=== PATIENT | male | born 1965 | race Two or more races ===

== ENCOUNTER 2022-01-19 14:06 | Emergency (ER) | payer OTHER ==
[~2022-01-19] VITALS: Ht 167.6 cm; Wt 88.5 kg
[2022-01-19] MEDS ORDERED: TAMS0.4C PO (21:05)
== END 2022-01-19 21:28 | disposition home or self-care (01) ==
LOC: ER 14:06
DX: N23 Unspecified renal colic (principal); Z20.822 Contact with and (suspected) exposure to COVID-19

== ENCOUNTER 2023-12-21 05:53 | Day surgery (SDC) | payer OTHER ==
[2023-12-20 08:27] LABS: HEMATOCRIT 44.2 % (39.0-48.0); HEMOGLOBIN 14.5 g/dL (13-16.00); MEAN CELL VOLUME 90.9 fL (80.0-100.00); MEAN CORPUSCULAR HEMOGLOBIN 29.9 pg (27.00-32.0); MEAN CORPUSCULAR HGB CONC 32.9 g/dl (32.0-36.0); PLATELET COUNT 308 K/uL (150-450); RED BLOOD COUNT 4.86 M/uL (4.00-6.00); RED CELL DISTRIBUTION WIDTH 13.8 % (11.5-14.5)
[2023-12-20 08:31] LABS: PH,URINE 6.5 (5.0-8.0); URINE APPEARANCE Turbid; URINE BILIRRUBIN Negative (NEGATIVE); URINE BLOOD Large; URINE COLOR Dark Yellow; URINE GLUCOSE Negative (NEGATIVE); URINE KETONE Trace (NEGATIVE); URINE LEUKOCYTE Moderate; URINE NITRATE Negative; URINE PROTEIN >=1000 (NEGATIVE); URINE UROBILINOGEN 0.2 E.U./dl
[2023-12-20 08:32] LABS: URINE CAST 4.81 uL (0.0-1.40); URINE EPITHELIAL CELLS 19.9 uL (0.0-38.8); URINE RBC 1679.4 uL (0.0-20.8); URINE WBC 2116.5 uL (0.0-23.2)
[2023-12-20 09:02] LABS: INR 1.02; PARTIAL THROMBOPLASTIN TIME 29.8 SECONDS (22.0-34.0); PROTHROMBIN TIME 11.1 SECONDS (9.0-11.5)
[2023-12-20 09:02] LABS: URINE BACTERIA > 9821.5 uL (0.0-1933)
[2023-12-20 09:09] LABS: CALCIUM 9.5 mg/dL (8.5-10.1); CREATININE SERUM 1.08 mg/dL (0.70-1.30); GFR 70.47; POTASSIUM 4.79 mEq/L (3.5-5.1)
[~2023-12-21 05:53] MED LIST: COZAAR25 MG PO; TAMS0.4C PO
[2023-12-21] MEDS ORDERED: GENTAMICIN SULFATE 40 MG/ML VIAL ONE (07:38)
[2023-12-21] MEDS ORDERED: CHLORHEXIDINE GLUCONATE 120 ML BOTTLE TOP ONE (07:48)
[2023-12-21] MEDS ORDERED: FLUCONAZOLE IN NACL,ISO-OSM 200 MG/100 ML PIGGYBAG IV ONE (10:45)
[2023-12-21] MEDS ORDERED: AMINOCAPROIC ACID 20 MG/ML ML IV ONE (11:00)
[2023-12-21] MEDS ORDERED: SUGAMMADEX SODIUM 200 MG/2 ML VIAL IV ONE ×3 (12:10→13:44)
[2023-12-21] MEDS ORDERED: MORPHINE SULFATE 4 MG/ML VIAL IV ONE (12:50)
[2023-12-21] MEDS ORDERED: OxyCODONE HCL/APAP UD (PERCOCET) PO ONE (13:15)
[2023-12-21] MEDS ORDERED: OXYBUTYNIN CHLORIDE 5 MG TABLET PO ONE (13:15)
[2023-12-21] MEDS ORDERED: ONDANSETRON HCL 2 MG/ML VIAL IV PRN (13:15)
[2023-12-21] MEDS ORDERED: PHENAZOPYRIDINE HCL 100 MG TABLET PO ONE ×2 (13:15→13:44)
[2023-12-21] MEDS ORDERED: MEPERIDINE HCL 25 MG/ML AMPUL IV ONE (13:35)
== END 2023-12-21 17:25 | disposition home or self-care (01) ==
LOC: CIR.AMB 05:53
PROVIDERS: ATTEND Urology
DX: C67.9 Malignant neoplasm of bladder, unspecified (principal)